=== PATIENT | male | born 1980 ===

== ENCOUNTER 2021-01-20 15:00 | Emergency (ER) | payer OTHER ==
[2021-01-20 15:19] VITALS: BP 128/84; PULSE 80; TEMP 98.5; BMI 26.4
[2021-01-20] MEDS ORDERED: DIPHTH,PERTUSS(ACELL),TET 0.5 ML DISP.SYRIN IM ONE ×2 (15:22→15:35)
[2021-01-20] MEDS ORDERED: ACETAMINOPHEN 325 MG TABLET (FP) PO ONE (15:48)
[2021-01-20] MEDS ORDERED: ACETAMINOPHEN 500 MG TABLET (FP) ONE (15:50)
[2021-01-20] MEDS ORDERED: KETOROLAC TROMETHAMINE 15 MG/ML VIAL IM ONE (16:58)
[2021-01-20] MEDS ORDERED: KETOROLAC TROMETHAMINE 15 MG/ML VIAL ONE (17:00)
[2021-01-20] MEDS ORDERED: MUPIROCIN 2% TOPICAL OINTMENT 22 GM TUBE ONE (19:36)
== END 2021-01-20 19:44 | disposition home or self-care (01) ==
LOC: FER 15:00
PROC: 3E0234Z Introduction of Serum, Toxoid and Vaccine into Muscle, Percutaneous Approach (ICD-10-PCS; principal; 2021-01-20)
PROC: 3E0333Z Introduction of Anti-inflammatory into Peripheral Vein, Percutaneous Approach (ICD-10-PCS; 2021-01-20)
DX: S49.92XA Unspecified injury of left shoulder and upper arm, initial encounter (principal); S09.90XA Unspecified injury of head, initial encounter; V00.131A Fall from skateboard, initial encounter; Y93.51 Activity, roller skating (inline) and skateboarding
CPT/HCPCS: 70450-TC; 71250-TC; 72125-TC; 73030-TC-LT-FY; 73060-TC-LT-FY; 73200-TC-RT; 90715; 99285-25